=== PATIENT | female | born 1990 | race Caucasian/White ===

== ENCOUNTER → 2019-07-09 07:56 | Outpatient (BNVA) | payer OTHER, SELFPAY | PROVIDERS: Family Provider Family Medicine; PCP Family Medicine; Visit Provider Obstetrics & Gynecology | DX: Z12.4 Encounter for screening for malignant neoplasm of cervix (principal) | CPT/HCPCS: 88175 ==

== ENCOUNTER → 2019-12-24 15:27 | Outpatient (BNVA) | payer OTHER, SELFPAY | PROVIDERS: Family Provider Family Medicine; PCP Family Medicine; Visit Provider Nurse Practitioner Family | DX: J06.9 Acute upper respiratory infection, unspecified (principal) | CPT/HCPCS: 87071; 87635; 87880 ==

== ENCOUNTER → 2021-02-10 13:08 | Outpatient (BNVA) | payer OTHER, SELFPAY | PROVIDERS: Family Provider Family Medicine; PCP Family Medicine; Visit Provider Nurse Practitioner Women's Health | DX: N92.6 Irregular menstruation, unspecified (principal) | CPT/HCPCS: 81025 ==

== ENCOUNTER → 2021-03-02 08:08 | Outpatient (BNVA) | payer OTHER, SELFPAY | PROVIDERS: Family Provider Family Medicine; PCP Family Medicine; Visit Provider Obstetrics & Gynecology | DX: Z34.80 Encounter for supervision of other normal pregnancy, unspecified trimester | CPT/HCPCS: 80307; 82950; 84315; 85025; 86592; 86762; 86803; 86850; 86900; 87086; 87340; 87491; 87591; 87661 ==

== ENCOUNTER → 2021-03-16 13:23 | Outpatient (BNVA) | payer OTHER, SELFPAY | PROVIDERS: Family Provider Family Medicine; PCP Family Medicine; Visit Provider Nurse Practitioner Women's Health | DX: Z34.90 Encounter for supervision of normal pregnancy, unspecified, unspecified trimester (principal) | CPT/HCPCS: 84315; 87806 ==

== ENCOUNTER → 2021-04-14 13:02 | Outpatient (BNVA) | payer OTHER, SELFPAY | PROVIDERS: Family Provider Family Medicine; PCP Family Medicine; Visit Provider Obstetrics & Gynecology | DX: Z36.89 Encounter for other specified antenatal screening (principal) | CPT/HCPCS: 76805 ==

== ENCOUNTER → 2021-05-14 08:52 | Outpatient (BNVA) | payer OTHER, SELFPAY | PROVIDERS: Family Provider Family Medicine; PCP Family Medicine; Visit Provider Obstetrics & Gynecology | DX: Z34.80 Encounter for supervision of other normal pregnancy, unspecified trimester (principal) | CPT/HCPCS: 82950; 84315 ==

== ENCOUNTER → 2021-06-15 12:55 | Outpatient (BNVA) | payer OTHER, SELFPAY | PROVIDERS: Family Provider Family Medicine; PCP Family Medicine; Visit Provider Obstetrics & Gynecology | DX: Z34.80 Encounter for supervision of other normal pregnancy, unspecified trimester (principal) | CPT/HCPCS: 84315; 85027 ==

== ENCOUNTER → 2021-08-05 09:15 | Outpatient (BNVA) | payer OTHER, SELFPAY | PROVIDERS: Family Provider Family Medicine; PCP Family Medicine; Visit Provider Obstetrics & Gynecology | DX: Z34.90 Encounter for supervision of normal pregnancy, unspecified, unspecified trimester (principal) | CPT/HCPCS: 84315; 87081 ==

== ENCOUNTER → 2021-08-13 08:48 | Outpatient (BNVA) | payer OTHER, SELFPAY | PROVIDERS: Family Provider Family Medicine; PCP Family Medicine; Visit Provider Obstetrics & Gynecology | DX: O21.9 Vomiting of pregnancy, unspecified (principal); Z3A.00 Weeks of gestation of pregnancy not specified | CPT/HCPCS: 83986; 84315 ==

== ENCOUNTER → 2021-08-23 11:15 | Outpatient (BNVA) | payer OTHER, SELFPAY | PROVIDERS: Family Provider Family Medicine; PCP Family Medicine; Visit Provider Obstetrics & Gynecology | DX: Z34.80 Encounter for supervision of other normal pregnancy, unspecified trimester (principal); Z20.822 Contact with and (suspected) exposure to COVID-19 | CPT/HCPCS: 84315; 87635 ==

== ENCOUNTER → 2021-08-30 11:21 | Outpatient (BNVA) | payer OTHER, SELFPAY | PROVIDERS: Family Provider Family Medicine; PCP Family Medicine; Visit Provider Obstetrics & Gynecology | DX: O26.893 Other specified pregnancy related conditions, third trimester (principal); N89.8 Other specified noninflammatory disorders of vagina; Z3A.00 Weeks of gestation of pregnancy not specified | CPT/HCPCS: 83986; 84315; 87635 ==

== ENCOUNTER 2021-08-31 12:00 | Inpatient (IN) | payer OTHER, SELFPAY ==
[2021-08-31] VITALS (53 sets, daily range): BP systolic 92–171; BP diastolic 50–95; PULSE 78–114; RESP 16; TEMP 36.3–36.7; O2SAT 97–100; BMI 43.4
[2021-08-31 12:54] LABS: Basophils % 0.2 %; Eosinophils % 0.2 %; Hematocrit 40.7 % (37.0-47.0); Hemoglobin 12.9 g/dL (11.5-15.3); Lymphocytes # 0.9 10^3/uL (0.8-4.8); Lymphocytes % 8.5 %; Mean Corpuscular HGB Conc 31.7 g/dL (30.0-36.0); Mean Corpuscular Hemoglobin 29.4 pg (28.0-34.0); Mean Corpuscular Volume 92.7 fl (81-99); Mean Platelet Volume 10.8 fL (7.4-10.4); Monocytes # 0.6 10^3/uL (0.2-0.9); Neutrophils # 8.68 10^3/uL (1.8-7.7); Neutrophils % 84.1 %; Nucleated Red Blood Cells % 0 %; Platelet Count 250 10^3/cmm (130-400); Red Blood Count 4.39 10^6/uL (4.1-5.3); Red Cell Distribution Width 14.5 % (12.1-15.1); White Blood Count 10.3 10^3/uL (4.0-10.0)
[2021-08-31] MEDS: lactated ringers 1,000 ML 999 ML IV (13:48)
[2021-08-31] MEDS: lactated ringers 1,000 ML 125 ML IV (13:49)
[2021-08-31] MEDS: ondansetron 2 mg/ML SDV 2 mL 4 MG IVP (14:02)
[2021-08-31 15:01] LABS: Alanine Aminotransferase < 5 U/L (0-33); Albumin Level 2.4 g/dL (3.5-5.2); Alkaline Phosphatase 119 IU/L (35-105); Anion Gap 21.1 (5-19); Aspartate Amino Transferase 11 U/L (0-32); Blood Urea Nitrogen 5 mg/dL (6-20); Calcium 8.5 mg/dL (8.5-10.5); Carbon Dioxide 14 mmol/L (22-29); Chloride 103 mmol/L (98-107); Globulin 2.1 g/dL (1.3-4.6); Glomerular Filtration Rate 419.9 mL/min (90-130); Glucose 60 mg/dL (65-115); Osmolality Calculated 273 mOsm/kg (285-295); Potassium 4.1 mmol/L (3.5-5.1); Sodium 134 mmol/L (136-145); Total Bilirubin 0.2 mg/dL (0.15-1.2); Total Protein 4.5 g/dL (6.6-8.7); Uric Acid 2.4 mg/dL (2.4-5.7)
[2021-08-31 15:13] LABS: Urine Creatinine 32 mg/dL (28-217); Urine Protein Random 5 mg/dL
[2021-08-31 15:18] LABS: UPRO/UCREAT Ratio 0.16 mg/mg CR
--- NOTE | 2021-08-31 15:21 | ANES.PREANE2 ---
Pre-Anesthetic Assessment Height/Weight: Height 1.68 m Weight 122.016 kg Temp Pulse BP Pulse Ox 97.5 F L 107 H 144/79 100 08/31/21 12:58 08/31/21 15:03 08/31/21 15:03 08/31/21 13:42 Labor Familial anesthetic complications: None Was Beta Charli taken within 24 hours: N/A Was Clonidine taken within 24 hours: N/A Social No alcohol and No tobacco Exam alert, oriented x 3, clear to auscultation bilaterally and regular rate & rhythm Airway Submandibular: within normal limits Cervical ROM: within normal limits Mallampati: Class II Dentition: full History/ROS No significant history except as noted Anesthetic Plan ASA status: 2 Anesthesia: Regional (specify below) (Labor epidural) Risk of > 500 ml blood loss (7ml/kg in children): No Medications/Allergies Home Medications Medication Instructions Recorded Confirmed Last Taken Type prenat.vits,rosita,[id number] 1 tab PO DAILY 02/10/21 08/30/21 Unknown History doxylamine succinate 25 mg tablet 25 mg PO Q6H PRN 02/24/21 08/30/21 Unknown History (Unisom (doxylamine)) calcium carbonate 200 mg calcium 200 mg PO BID PRN 07/09/21 08/30/21 Unknown History (500 mg) chewable tablet (Tums) metoclopramide HCl 10 mg tablet 10 mg PO Q6H PRN 07/19/21 08/30/21 Unknown History (Reglan) Allergies Allergy/AdvReac Type Severity Reaction Status Date / Time amoxicillin Allergy Hives Verified 08/30/21 11:39 Penicillins Allergy Hives Verified 08/30/21 11:39 shrimp Allergy Anaphylaxis Verified 08/30/21 11:39 Current Medications Generic Name Dose Route Start Last Admin Trade Name Freq PRN Reason Stop Dose Admin Ropivacaine 200 mg in 100 mls @ 13 mls/hr 08/31/21 12:30 08/31/21 13:49 Naropin Premix EPIDURAL 13 mls/hr .Q7H42M COLIN Administration Lactated Ringer's 1,000 mls @ 999 mls/hr 08/31/21 12:18 08/31/21 13:48 Lactated Ringers IV 999 mls/hr .Q1H1M PRN Administration See label comments Lactated Ringer's 1,000 mls @ 999 mls/hr 08/31/21 12:18 08/31/21 13:49 Lactated Ringers IV 125 mls/hr .Q1H1M PRN Administration Per L&D Rescitation Protocol Ondansetron HCl 4 mg 08/31/21 12:18 08/31/21 14:02 Ondansetron 2 Mg/Ml Sdv 2 Ml IVP 4 mg Q4H PRN Administration NAUSEA AND VOMITING PFSH Anesthesia Medical History No pertinent past medical history neghx: hnt,dm,thyroid,dvt/pe PCP: [facility] Surgical History History of oral surgery Family History Grandmother Diabetes Maternal Hypertension maternal Colon cancer Uterine cancer Grandfather Heart disease Maternal and paternal Hypertension maternal and paternal Diabetes paternal Denies family history of Ovarian cancer Clotting disorder Breast cancer Anesthesia complication Bleeding disorder Thyroid condition Stroke Social History Additional social history: Well balanced diet Female Reproductive History : 2 Data Anesthesia : 08/31/21 12:15 08/31/21 14:14 Short CBC 08/31/21 Range/Units 12:15 WBC 10.3 H (4.0-10.0) 10^3/uL Hgb 12.9 (11.5-15.3) g/dL Hct 40.7 (37.0-47.0) % MCV 92.7 (81-99) fl Plt Count 250 (130-400) 10^3/cmm Neut % (Auto) 84.1 % Neut # (Auto) 8.68 H (1.8-7.7) 10^3/uL BMP 08/31/21 14:14 Sodium 134 L Potassium 4.1 Chloride 103 Carbon Dioxide 14 L BUN 5 L Creatinine 0.2 L Glucose 60 L Calcium 8.5 Liver Function 08/31/21 Range/Units 14:14 Total Bilirubin 0.2 (0.15-1.2) mg/dL AST 11 (0-32) U/L ALT < 5 (0-33) U/L Alkaline Phosphatase 119 H (35-105) IU/L Albumin 2.4 L (3.5-5.2) g/dL Cardiac Studies: No Data to Display
--- NOTE | 2021-08-31 15:23 | ANES.PROC ---
Anesthesia Procedures Procedure/Date: 08/31/21 Epidural: Time Out Performed: Yes Consents Signed: Procedure Consent Consent: requested by attending/covering physician, from patient, risks and benefits reviewed and patient agrees to proceed Lumbar Level: L3-L4 Epidural position: sitting Epidural procedure: sterile prep of area, 1% lidocaine to numb the area, 18 g needle, neg for paresthesia, test dose given, placed PCEA, no systemic response, sterile dressing applied and 0.2% Ropiavacaine @ mls/hr (13) Additional Comments: ROSETTA at 6cm, cath at 11cm, 5mls of 2% lido PF bolused
--- NOTE | 2021-08-31 17:15 | PM.OPHPUD ---
Labor & Delivery H&P Update Date of Procedure: August 31, 2021 Date H&P Performed: 08/30/21 H&P update information: I have reviewed H&P completed within last 30 days, I have examined patient prior to procedure and Changes to prior documentation as noted here Changes to previous documentation: Active labor-cervix is 6 cm 90% and -1 per nurse. Admission Diagnosis:
--- NOTE | 2021-08-31 17:17 | P.PCNOB_ITS ---
Delivery Note: Date of delivery: August 31, 2021 - PRE-DELIVERY DIAGNOSIS: 31-year-old 2 para 1-0-0-1 at 39 weeks and 6 days Active labor Obesity with a BMI of 43 POST-DELIVERY DIAGNOSIS: Vaginal delivery on 08/31/2021 PROCEDURE: Vaginal delivery on 08/31/2021 ANESTHESIA: Epidural anesthesia DELIVERING PHYSICIAN: Dulce Glover FACOG PRE-DELIVERY COURSE: Ms. Macias is a 31-year-old 2 para 1-0-0-1 at 39 weeks and 6 days who presented to labor and delivery at noon on 08/31/2021 with reports of contractions . Contractions started earlier this morning and as they got worse she presented for evaluation. She was noted to be 6 cm, 80% and -2 station. She was GBS negative and admitted in active labor. No complications in the . She was uncomfortable and requested an epidural which was placed without any difficulty. She did have some elevated blood pressures prior to the epidural likely secondary to pain however this preeclampsia work-up was done and this was negative and blood pressures returned to normal after she was comfortable. She denied any preeclamptic symptoms after the epidural she was 7 to 8 cm 90% and -1 station. She had spontaneous rupture of membranes at 2:40 PM with clear fluid. She progressed spontaneously and was fully dilated at 3:36 PM and +1 station. She was allowed to labor down and she was set up in lithotomy position at 4:10 PM ready to push. Station at this time was +2 to +3 station. tracing was overall category 1 with occasional variables. She was mahnaz every 2 to 4 minutes. DELIVERY NOTE: She was set up in lithotomy position and was pushing effectively. She was noted to be +3 station and continued pushing well. The head delivered in ROEL position, nuchal cord x1 was present. It was unable to be reduced. The shoulders and rest of the body followed with her next push and deliver through the nuchal cord without any difficulty The baby's mouth and nose were suctioned and the baby was placed on the mother's belly. Once cord pulsations stopped the cord was clamped and cut. The placenta delivered spontaneously intact with membranes and was discarded. The fundus was noted to be firm and well contracted. The vagina and cervix were inspected and no cervical or sulcal lacerations were noted. The perineum was noted to be intact. Should superficial perineal abrasions which were oozing and it was cauterized with silver nitrate. Baby girl, Rebecca born at 4:40 PM on 08/31/2021 with 8/9, weighing 4130 g, 9 pounds 2 ounces, 21-3/4 inches long. Placenta was delivered spontaneously intact with membranes at 4:44 PM. Cotyledons were intact , centrally inserted umbilical cord with 3 vessels noted. Estimated blood loss 250 mL. Complications-none, both baby and mother were left to recover in a stable condition. This documentation was created by [employer] boat engine mechanic software (known for inherent boat engine mechanic error). Every effort was made to assure accuracy of boat engine mechanic. Any obvious errors or omissions should be clarified with the author of the document. History History History 2 Term 1 Miscarriages/Ectopic 0 0 Living Children 1 Coding Level of Care Code Acute Clinical Account Executive for Mary Silveira
[2021-08-31] MEDS: docusate sodium 100 mg Capsule PO (19:45)
[2021-08-31] MEDS: HYDROcodone-acetaminophen 5-325 mg Tablet PO (21:44)
[2021-08-31] MEDS: ibuprofen 800 mg tablet PO (21:44)
[2021-08-31] MEDS: benzocaine-menthol 78 gm Canister 1 SPRAY TOPICAL (21:45)
[2021-08-31] MEDS: lanolin oint 7 gm 1 APPLIC TOPICAL (21:45)
[2021-09-01 01:00] VITALS: BP 114/74; PULSE 75; RESP 16; TEMP 36.7; O2SAT 97
[2021-09-01] MEDS: HYDROcodone-acetaminophen 5-325 mg Tablet PO (03:29)
[2021-09-01 03:30] VITALS: BP 114/71; PULSE 79; RESP 16; TEMP 36.6; O2SAT 98
--- NOTE | 2021-09-01 04:09 | ANE.PACU2 ---
Inpatient post-anesthesia follow up: Airway intact: Yes Vital signs: Temperature 97.9 F Pulse Rate 79 Respiratory Rate 16 Blood Pressure 114/71 Pulse Oximetry 98 Oxygen Delivery Me thod Room Air Oxygen Flow Rate Fraction of Inspir ed Oxygen Hydration adequate: Yes Nausea and vomiting: No Pain level: 2 Mental status: Baseline
[2021-09-01 06:14] LABS: Hematocrit 37.3 % (37.0-47.0); Hemoglobin 11.7 g/dL (11.5-15.3); Mean Corpuscular HGB Conc 31.4 g/dL (30.0-36.0); Mean Corpuscular Hemoglobin 29.3 pg (28.0-34.0); Mean Corpuscular Volume 93.3 fl (81-99); Mean Platelet Volume 10.8 fL (7.4-10.4); Platelet Count 238 10^3/cmm (130-400); Red Cell Distribution Width 14.6 % (12.1-15.1); White Blood Count 12.5 10^3/uL (4.0-10.0)
[2021-09-01 06:57] VITALS: BP 123/73; PULSE 69; RESP 16; TEMP 36.6; O2SAT 98
[2021-09-01] MEDS: prenatal vitamin Capsule 1 CAP PO (10:23)
[2021-09-01] MEDS: ibuprofen 800 mg tablet PO (10:23)
[2021-09-01] MEDS: docusate sodium 100 mg Capsule PO (10:23)
[2021-09-01 10:35] VITALS: BP 111/68; PULSE 84; RESP 16; TEMP 36.8; O2SAT 97
--- NOTE | 2021-09-01 12:46 | P.DS_ITS ---
Discharge Providers HALF BACKER Date of Admission: 08/31/21 12:00 Date of Discharge: 09/01/21 Attending Provider at Admission: Dulce Cordero MD Attending Provider at Discharge: Dulce Cordero MD PRE-DELIVERY DIAGNOSIS: 31-year-old 2 para 1-0-0-1 at 39 weeks and 6 days Active labor Obesity with a BMI of 43 POST-DELIVERY DIAGNOSIS: Vaginal delivery on 08/31/2021 PROCEDURE: Vaginal delivery on 08/31/2021 ANESTHESIA: Epidural anesthesia DELIVERING PHYSICIAN: Dulce Glover FACOG PRE-DELIVERY COURSE: Ms. Macias is a 31-year-old 2 para 1-0-0-1 at 39 weeks and 6 days who presented to labor and delivery at noon on 08/31/2021 with reports of contractions.? Contractions started earlier this morning and as they got worse she presented for evaluation.? She was noted to be 6 cm, 80% and -2 station.? She was GBS negative and admitted in active labor.? No complications in the .? She was uncomfortable and requested an epidural which was placed without any difficulty.??She did have some elevated blood pressures prior to the epidural likely secondary to pain however this preeclampsia work-up was done and this was negative and blood pressures returned to normal after she was comfortable.? She denied any preeclamptic symptoms after the epidural she was 7 to 8 cm 90% and -1 station.? She had spontaneous rupture of membranes at 2:40 PM with clear fluid.? She progressed spontaneously and was fully dilated at 3:36 PM and +1 station.? She was allowed to labor down and she was set up in lithotomy position at 4:10 PM ready to push.? Station at this time was +2 to +3 station.? tracing was overall category 1 with occasional variables.? She was mahnaz every 2 to 4 minutes. DELIVERY? NOTE: She was set up in lithotomy position and was pushing effectively. She was noted to be? +3 station and continued pushing well. The head delivered in ROEL position, nuchal cord x1 was present.? It was unable to be reduced.? The shoul ders and rest of the body followed with her next push and deliver through the nuchal cord without any difficulty The baby's mouth and nose were suctioned and the baby was placed on the mother's belly.? Once cord pulsations stopped the cord was clamped and cut.? The placenta delivered spontaneously intact with membranes and was discarded. The fundus was noted to be firm and well contracted. The vagina and cervix were inspected and no cervical or sulcal lacerations were noted.? The perineum was noted to be intact.? Should superficial perineal abrasions which were oozing and it was cauterized with silver nitrate. Baby girl, Rebecca born at 4:40 PM on 08/31/2021 with 8/9, weighing 4130 g, 9 pounds 2 ounces, 21-3/4 inches long. Placenta was delivered spontaneously intact with membranes at 4:44 PM. Cotyledons were intact , centrally inserted umbilical cord with 3 vessels noted. Estimated blood loss 250 mL. Complications-none, both baby and mother were left to recover in a stable condi tion. HOSPITAL COURSE: She underwent an uncomplicated vaginal delivery on 08/31/2021. She did well on day 0 and was ambulating well, tolerating regular diet, voiding freely, passing flatus. She was breast-feeding without difficulty and bonding well with her daughter. Pain was well-controlled with by mouth pain medication. She denied nausea, vomiting, fever, chills, shortness of breath, leg pain. She had moderate vaginal bleeding. On day #1 she continued to do well with stable vital signs and stable hemoglobin at 11.7. She was discharged home on day 1 in a stable condition, as she desired early discharge. Warning signs for endometritis, mastitis, DVT/PE were reviewed with her. Post delivery activity restrictions were also reviewed with her at all her questions were answered to her satisfaction. Desires interval sterilization for contraception and message sent to Jun to get this scheduled with Dr. Manley EXAM AT DISCHARGE: Gen.: No acute distress Heart: S1-S2 heard, regular rate and rhythm Lungs: Clear to auscultation bilaterally Abdomen: Soft, fundus firm below umbilicus Legs: No calf tenderness, +1 bilateral pitting pedal edema. CONDITION AT DISCHARGE: Stable This documentation was created by [employer] corporate administrator software (known for inherent corporate administrator error). Every effort was made to assure accuracy of corporate administrator. Any obvious errors or omissions should be clarified with the author of the document. Primary Care Provider: Lori Lambert, DO Reason for Visit Reason for Visit: contractions Information Peripartum Data: Delivery Method: Vaginal Physical Exam Urinary Catheter Management: Rader: Cath Placed During This Visit: yes Reason for Continuing Indwelling Catheter: Acute Urinary Retention or Obstruction Urinary Catheter Date of Insertion: 08/31/21 Urinary Catheter Time of Insertion: 14:15 History History History 2 Term 1 Miscarriages/Ectopic 0 0 Living Children 1 Discharge Data Studies Completed and Pending Laboratory Results WBC 12.5 10^3/uL (4.0-10.0) H 09/01/21 05:30 RBC 4.00 10^6/uL (4.1-5.3) L 09/01/21 05:30 Hgb 11.7 g/dL (11.5-15.3) 09/01/21 05:30 Hct 37.3 % (37.0-47.0) 09/01/21 05:30 MCV 93.3 fl (81-99) 09/01/21 05:30 MCH 29.3 pg (28.0-34.0) 09/01/21 05:30 MCHC 31.4 g/dL (30.0-36.0) 09/01/21 05:30 RDW 14.6 % (12.1-15.1) 09/01/21 05:30 Plt Count 238 10^3/cmm (130-400) 09/01/21 05:30 MPV 10.8 fL (7.4-10.4) H 09/01/21 05:30 Neut % (Auto) 84.1 % 08/31/21 12:15 Lymph % (Auto) 8.5 % 08/31/21 12:15 [place] % (Auto) 6.0 % 08/31/21 12:15 Eos % (Auto) 0.2 % 08/31/21 12:15 Baso % (Auto) 0.2 % 08/31/21 12:15 Neut # (Auto) 8.68 10^3/uL (1.8-7.7) H 08/31/21 12:15 Lymph # (Auto) 0.9 10^3/uL (0.8-4.8) 08/31/21 12:15 [place] # (Auto) 0.6 10^3/uL (0.2-0.9) 08/31/21 12:15 Eos # (Auto) 0.0 10^3/uL (0.0-0.8) 08/31/21 12:15 Baso # (Auto) 0.0 10^3/uL (0.0-0.1) 08/31/21 12:15 Nucleated RBC % (auto) 0 % 08/31/21 12:15 Nucleated RBCs # 0.0 /100WBC 08/31/21 12:15 Sodium 134 mmol/L (136-145) L 08/31/21 14:14 Potassium 4.1 mmol/L (3.5-5.1) 08/31/21 14:14 Chloride 103 mmol/L (98-107) 08/31/21 14:14 Carbon Dioxide 14 mmol/L (22-29) L 08/31/21 14:14 Anion Gap 21.1 (5-19) H 08/31/21 14:14 BUN 5 mg/dL (6-20) L 08/31/21 14:14 Creatinine 0.2 mg/dL (0.5-0.9) L 08/31/21 14:14 GFR Calculation 419.9 mL/min (90-130) H 08/31/21 14:14 Glucose 60 mg/dL (65-115) L 08/31/21 14:14 Calculated Osmolality 273 mOsm/kg (285-295) L 08/31/21 14:14 Uric Acid 2.4 mg/dL (2.4-5.7) 08/31/21 14:14 Calcium 8.5 mg/dL (8.5-10.5) 08/31/21 14:14 Total Bilirubin 0.2 mg/dL (0.15-1.2) 08/31/21 14:14 AST 11 U/L (0-32) 08/31/21 14:14 ALT < 5 U/L (0-33) 08/31/21 14:14 Alkaline Phosphatase 119 IU/L (35-105) H 08/31/21 14:14 Total Protein 4.5 g/dL (6.6-8.7) L 08/31/21 14:14 Albumin 2.4 g/dL (3.5-5.2) L 08/31/21 14:14 Globulin 2.1 g/dL (1.3-4.6) 08/31/21 14:14 U Random Total Protein 5 mg/dL 08/31/21 14:14 Urine Creatinine 32 mg/dL (28-217) 08/31/21 14:14 Protein/Creatinin Ratio 0.16 mg/mg CR 08/31/21 14:14 Vitals Last Vital Signs Temp 98.3 F 09/01/21 10:35 Pulse 84 09/01/21 10:35 Resp 16 09/01/21 10:35 BP 111/68 09/01/21 10:35 Pulse Ox 97 09/01/21 10:35 Discharge Plan Discharge Patient Disposition: Home Condition: Stable Prescriptions: New docusate sodium 100 mg Capsule 100 mg PO BID PRN (Reason: constipation) Qty: 30 0RF ibuprofen 800 mg tablet 800 mg PO Q8H Qty: 30 0RF Continued prenat.vits,rosita,[id number] Tablet 1 tab PO DAILY 0RF Unisom (doxylamine) 25 mg tablet 25 mg PO Q6H PRN0RF metoclopramide HCl [Reglan] 10 mg tablet 10 mg PO Q6H PRN0RF calcium carbonate [Tums] 200 mg calcium (500 mg) tablet,chewable 200 mg PO BID PRN0RF Discharge Orders: Discharge Order (Routine); Ordered 09/01/21 Ordered By: Dulce Cordero Referrals: Fabiano Manley MD [Physician] - (6 week appointment will be on 10/11/21 at 2:15pm.) Discharge Diet: Regular Discharge Activity: Limit activity as instructed Patient Instructions: Your Baby (GEN), and Nipple Soreness (GEN), How to Tell if Your Baby is Getting Enough Breast Milk (GEN), Preeclampsia and Eclampsia After Delivery (GEN), OB Discharge Report, OB Food/Drug Interaction Guide, OB Care at Home, Opioid Safety, OB Vaginal Deliveries - [facility], Abnormal Bleeding Activity Restrictions/Additional Instructions: No heavy lifting for 6 weeks, pelvic rest for 6 weeks Follow-up with Dr. Manley for 5 to 6-week visit Emergency room precautions reviewed Discharge Attestations HALF BACKER Time Spent in Discharge Care*: greater than 30 min Coding Level of Care Code Acute Court Worker for Chg Jordana
[2021-09-01 18:15] VITALS: BP 118/62; PULSE 89; RESP 16; TEMP 36.6; O2SAT 98
== END 2021-09-01 18:30 | disposition home or self-care (01) | DRG 807 ==
LOC: OPOB 16:56 → OBGYN 16:56
PROVIDERS: Admitting Provider Obstetrics & Gynecology; PCP Family Medicine; Visit Provider Obstetrics & Gynecology
DX: O69.81X0 Labor and delivery complicated by cord around neck, without compression, not applicable or unspecified (principal); Z37.0 Single live birth; O99.214 Obesity complicating childbirth; Z3A.39 39 weeks gestation of pregnancy
CPT/HCPCS: 36415; 51702; 59025; 59409; 80053; 82570; 84156; 84550; 85025; 85027; 96374; 99211; J2405; J2795

== ENCOUNTER → 2021-10-11 14:49 | Outpatient (BNVA) | payer OTHER, SELFPAY | PROVIDERS: PCP Family Medicine; Visit Provider Obstetrics & Gynecology | DX: Z30.430 Encounter for insertion of intrauterine contraceptive device (principal) | CPT/HCPCS: 81025 ==

== ENCOUNTER → 2023-06-21 09:52 | Outpatient (BNVA) | payer OTHER, SELFPAY | PROVIDERS: PCP Family Medicine; Visit Provider Family Medicine Adult Medicine | DX: J02.8 Acute pharyngitis due to other specified organisms; B95.8 Unspecified staphylococcus as the cause of diseases classified elsewhere | CPT/HCPCS: 87880 ==

== ENCOUNTER → 2024-07-01 14:18 | Outpatient (BNVA) | payer OTHER, SELFPAY | PROVIDERS: PCP Family Medicine; Visit Provider Podiatrist Foot & Ankle Surgery | DX: M79.671 Pain in right foot (principal); M79.672 Pain in left foot; M72.2 Plantar fascial fibromatosis | CPT/HCPCS: 73630 ==

== ENCOUNTER → 2024-10-09 09:27 | Outpatient (BNVA) | payer OTHER, SELFPAY | PROVIDERS: PCP Family Medicine; Visit Provider Nurse Practitioner Women's Health | DX: Z30.433 Encounter for removal and reinsertion of intrauterine contraceptive device (principal) | CPT/HCPCS: 81025 ==

== ENCOUNTER → 2024-11-14 16:34 | Outpatient (BNVA) | payer OTHER, SELFPAY | PROVIDERS: PCP Family Medicine; Visit Provider Nurse Practitioner Women's Health | DX: Z12.4 Encounter for screening for malignant neoplasm of cervix (principal) | CPT/HCPCS: 87624 ==